=== PATIENT | female | born 1985 | race Caucasian/White ===

== ENCOUNTER 2021-05-07 05:51 | Inpatient (IN) | payer BC ==
[2021-05-07] MEDS ORDERED: PEPCID20 MG PO (07:10)
[2021-05-07 07:13] LABS: HEMOGLOBIN 10.9 gm/dl (12.3-15.3); RED BLOOD COUNT 3.95 M/UL (4.00-5.10); WHITE BLOOD COUNT 8.1 K/UL (4.5-11.0)
[2021-05-07] MEDS ORDERED: DOCUSATE SODIU100 MG PO (11:30)
[2021-05-07] MEDS ORDERED: IBUPROFEN600 MG PO (11:30)
[2021-05-08 06:20] LABS: HEMOGLOBIN 9.8 gm/dl (12.3-15.3)
[2021-05-08] MEDS ORDERED: FERROUS SULFAT325 MG PO (17:26)
== END 2021-05-08 17:56 | disposition home or self-care (01) | DRG 807 ==
LOC: OB 05:51
PROVIDERS: Obstetrics & Gynecology; ADMIT Obstetrics & Gynecology
PROC: 10907ZC Drainage of Amniotic Fluid, Therapeutic from Products of Conception, Via Natural or Artificial Opening (ICD-10-PCS; principal; 2021-05-07)
PROC: 10E0XZZ Delivery of Products of Conception, External Approach (ICD-10-PCS; 2021-05-07)
PROC: 3E033VJ Introduction of Other Hormone into Peripheral Vein, Percutaneous Approach (ICD-10-PCS; 2021-05-07)
PROC: 0HQ9XZZ Repair Perineum Skin, External Approach (ICD-10-PCS; 2021-05-07)
PROC: 3E0234Z Introduction of Serum, Toxoid and Vaccine into Muscle, Percutaneous Approach (ICD-10-PCS; 2021-05-07)
DX: O99.62 Diseases of the digestive system complicating childbirth (principal); Z37.0 Single live birth; K21.9 Gastro-esophageal reflux disease without esophagitis; O99.02 Anemia complicating childbirth; O70.0 First degree perineal laceration during delivery; Z20.822 Contact with and (suspected) exposure to COVID-19; O60.13X0 Preterm labor second trimester with preterm delivery third trimester, not applicable or unspecified; D64.9 Anemia, unspecified; Z3A.36 36 weeks gestation of pregnancy; Z23 Encounter for immunization
CPT/HCPCS: 36415; 36600; 51702; 81001; 82800; 85014; 85018; 85025; 85461; 86850; 86900; 86901; 90472; 90715; J2590; J2790; J7120; U0002